=== PATIENT | female | born 1970 | race Hispanic/Latino ===

== ENCOUNTER 2022-07-02 12:31 | Emergency (ER) | payer BC, OTHER ==
[~2022-07-02] VITALS: Ht 154.9 cm; Wt 74.8 kg
[2022-07-02] MEDS ORDERED: KETOROLAC 60 MG VIAL (30MG/ML) IM ONE (13:30)
[2022-07-02] MEDS ORDERED: IBUP-2070 PO (14:17)
[2022-07-02] MEDS ORDERED: CYCL5TAB PO (14:17)
[2022-07-02 15:14] VITALS: BP 102/65
== END 2022-07-02 15:16 | disposition home or self-care (01) ==
LOC: EDH 12:31
DX: M54.50 Low back pain, unspecified (principal); M25.511 Pain in right shoulder; M54.2 Cervicalgia; M54.6 Pain in thoracic spine; Z90.710 Acquired absence of both cervix and uterus; V89.2XXA Person injured in unspecified motor-vehicle accident, traffic, initial encounter; Y93.89 Activity, other specified; Y92.89 Other specified places as the place of occurrence of the external cause; Y99.8 Other external cause status
CPT/HCPCS: 99285; 72125; 73030; 72131; 72128; 96372; J1885